=== PATIENT | male | born 1935 | race Caucasian/White ===

== ENCOUNTER → 2017-01-24 | Outpatient (CLI) | payer MEDICARE ==
[~2017-01-24] MED LIST: AMLO10TA2 PO; ASPI1TAB57 PO; ASPI81 PO; ATEN25TA PO; CETI10 PO; COEN1CAP PO; COQ-100C5 OR; FENO48TA PO; FORSKOLIN; GLIP10TA6 PO; HYDR-3533 PO; LEVO.05 PO; LEVO50TA4 PO; LORT5TAB PO; LOSA100T PO; METF1000 PO; NIAC500T5 PO; OMEG5CAP PO; OMEP20TA OR; ORPH100T2 PO; OXYB5TAB PO; PANT40TA3 PO; PLAV75TA29 PO; POTA-163 PO; PRED10PA PO; RASP100C PO; ROSU1TAB10 PO; ROSU1TAB4 PO; TAB-TAB PO; VITA100018 OR; VITA100021 SL; VITA100064 PO; VITA10007 PO; WAL-10TA2 PO
[2017-01-24 12:00] LABS: HEMATOCRIT 39.5 % (39.0-51.0); MEAN CELL VOLUME 89.5 FL (80.0-100.0); MEAN CORPUSCULAR HEMOGLOBIN 30.6 PG (27.0-34.0); MEAN CORPUSCULAR HGB CONC 34.2 % (32.0-36.0); PLATELET COUNT 255 TH/MM3 (150-450); RED BLOOD COUNT 4.42 MIL/MM3 (4.50-5.90); RED CELL DISTRIBUTION WIDTH 12.3 % (11.6-17.2); REVIEW FLAG FINAL
[2017-01-24 12:22] LABS: ANION GAP 7 MEQ/L (5-15); AST (GOT) 32 U/L (15-37); BICARBONATE 27.1 MEQ/L (21.0-32.0); BLOOD UREA NITROGEN 15 MG/DL (7-18); CHLORIDE 103 MEQ/L (98-107); GLOMERULAR FILTRATION RATE 57 ML/MIN (>89); GLUCOSE,FASTING 104 MG/DL (74-99); POTASSIUM 4.5 MEQ/L (3.5-5.1); SODIUM (NA) 137 MEQ/L (136-145)
[2017-01-24 12:49] LABS: ALKALINE PHOSPHATASE 80 U/L (45-117); ALT (GPT) 43 U/L (12-78); TOTAL BILIRUBIN ADULT 0.3 MG/DL (0.2-1.0)
== END ==
LOC: CLAB 10:57
DX: R76.8 Other specified abnormal immunological findings in serum (principal); R79.89 Other specified abnormal findings of blood chemistry; L25.9 Unspecified contact dermatitis, unspecified cause; R80.9 Proteinuria, unspecified; R53.83 Other fatigue; R06.02 Shortness of breath
CPT/HCPCS: 36415; 80053; 82607; 82746; 83880; 84403; 84443; 85027

== ENCOUNTER → 2017-05-05 | Outpatient (CLI) | payer MEDICARE ==
[2017-05-05 08:44] LABS: BICARBONATE 27.5 MEQ/L (21.0-32.0); CALCIUM 9.5 MG/DL (8.5-10.1); CREATININE 1.49 MG/DL (0.60-1.30)
== END ==
LOC: CLAB 07:07
PROVIDERS: ATTEND Internal Medicine Cardiovascular Disease
DX: I50.9 Heart failure, unspecified (principal)
CPT/HCPCS: 36415; 80048

== ENCOUNTER → 2017-05-29 | Outpatient (CLI) | payer MEDICARE ==
[~2017-05-29] MED LIST changes: +ASCO100029; +BLACK CHERRY CONCENT PO; +CALC500T55; +CHRO400T; +CODCAP4 PO; +CROM5.2S4 EACH NARE; +FURO20TA PO; +HYDR-3801 PO; +HYDR200T3 PO; +KETO0.02 EACH EYE; +LEVEMIR SQ; +LORA-650 PO; +LUTE1TAB PO; +LYSI1000; +MAPA500T13 PO; +METO50TA PO; +MULT-65 PO; +TEMA15CA PO; +TURM500C7 PO; +tumeric PO
== END ==
LOC: CLAB 08:22
PROVIDERS: ATTEND Family Medicine
DX: M25.50 Pain in unspecified joint (principal)
CPT/HCPCS: 36415; 86617

== ENCOUNTER 2017-06-03 10:13 | Day surgery (SDC) | payer MEDICARE ==
[~2017-06-03] VITALS: Ht 177.8 cm; Wt 97.4 kg
[~2017-06-03 10:13] MED LIST changes: -ASCO100029; -BLACK CHERRY CONCENT PO; -CALC500T55; -CHRO400T; -CODCAP4 PO; -CROM5.2S4 EACH NARE; -FURO20TA PO; -HYDR-3801 PO; -HYDR200T3 PO; -KETO0.02 EACH EYE; -LEVEMIR SQ; -LORA-650 PO; -LUTE1TAB PO; -LYSI1000; -MAPA500T13 PO; -METO50TA PO; -MULT-65 PO; -TEMA15CA PO; -TURM500C7 PO; -tumeric PO
[2017-06-03] MEDS ORDERED: IOHEXOL 350 MG/ML 50 ML BTL (for Cath Lab) OTHER ONE (10:14)
[2017-06-03 10:51] VITALS: BP 162/72; PULSE 61; RESP 18; TEMP 98.1; O2SAT 93
[2017-06-03] MEDS ORDERED: NS 1000P @30 MLS/HR (KVO) IV SCH (11:00)
[2017-06-03 11:01] LABS: AUTOMATED NEUTROPHIL # 3.5 TH/MM3 (1.8-7.7); BASOPHIL # 0.1 TH/MM3 (0-0.2); BASOPHIL % 0.7 % (0.0-2.0); EOSINOPHIL # 0.3 TH/MM3 (0-0.4); EOSINOPHIL % 4.5 % (0.0-4.0); HEMATOCRIT 41.8 % (39.0-51.0); HEMOGLOBIN 14.1 GM/DL (13.0-17.0); LYMPH % 35.3 % (9.0-44.0); LYMPHOCYTE # 2.5 TH/MM3 (1.0-4.8); MEAN CELL VOLUME 87.4 FL (80.0-100.0); MEAN CORPUSCULAR HEMOGLOBIN 29.4 PG (27.0-34.0); MEAN CORPUSCULAR HGB CONC 33.7 % (32.0-36.0); MEAN PLATELET VOLUME 9.7 FL (7.0-11.0); MONO % 9.5 % (0.0-8.0); MONOCYTE # 0.7 TH/MM3 (0-0.9); PLATELET COUNT 186 TH/MM3 (150-450); RED BLOOD COUNT 4.78 MIL/MM3 (4.50-5.90); RED CELL DISTRIBUTION WIDTH 12.7 % (11.6-17.2)
[2017-06-03 11:12] LABS: PROTHROMBIN TIME - PATIENT 10.6 SEC (9.8-11.6)
[2017-06-03] MEDS ORDERED: TEMA15CA PO (11:13)
[2017-06-03] MEDS ORDERED: HYDR-3801 PO (11:13)
[2017-06-03] MEDS ORDERED: MAPA500T13 PO (11:13)
[2017-06-03] MEDS ORDERED: CHRO400T (11:13)
[2017-06-03] MEDS ORDERED: KETO0.02 EACH EYE (11:13)
[2017-06-03] MEDS ORDERED: LEVEMIR SQ (11:13)
[2017-06-03] MEDS ORDERED: CROM5.2S4 EACH NARE (11:13)
[2017-06-03] MEDS ORDERED: LYSI1000 (11:13)
[2017-06-03] MEDS ORDERED: tumeric PO (11:13)
[2017-06-03] MEDS ORDERED: LUTE1TAB PO (11:13)
[2017-06-03] MEDS ORDERED: CODCAP4 PO (11:13)
[2017-06-03] MEDS ORDERED: ASCO100029 (11:13)
[2017-06-03] MEDS ORDERED: FURO20TA PO (11:13)
[2017-06-03] MEDS ORDERED: BLACK CHERRY CONCENT PO (11:13)
[2017-06-03] MEDS ORDERED: METO50TA PO (11:13)
[2017-06-03] MEDS ORDERED: LORA-650 PO (11:13)
[2017-06-03] MEDS ORDERED: MULT-65 PO (11:13)
[2017-06-03] MEDS ORDERED: CALC500T55 (11:13)
[2017-06-03] MEDS ORDERED: HYDR200T3 PO (11:13)
[2017-06-03 11:19] LABS: BICARBONATE 27.1 MEQ/L (21.0-32.0); CALCIUM 9.2 MG/DL (8.5-10.1); CREATININE 1.49 MG/DL (0.60-1.30)
[2017-06-03] MEDS ORDERED: HEPARIN-NS/PF FLUSH BAG 2,000 ML IV FLUSH ONE (12:46)
[2017-06-03] MEDS ORDERED: MIDAZOLAM HCL 2 MG/2 ML VIAL ONE (12:46)
--- NOTE | 2017-06-03 14:02 | CATHPROC ---
[place] HIS Report Study Information Study Number Admission Scheduled Start Study Start [id number] Jun 03 2017 10:13AM 06/03/2017 Jun 03 2017 12:50PM [place] Service Cardiac Catheterization Admit Source Facility Department Other [facility] Physician and Clinical Staff Initial Edvin Saleh Winchman/Crane Operator Marleny De Leon,RANDOLPH Winchman/Crane Operator Álvaro Oro RN Recorder Blossom Stokes,RT(R) Itzel Brambila,RT(R) (BS) Procedures Performed Procedure Location (Site) Vessel Name Coronary Angiograms LCA Left Coronary Coronary Angiograms RCA Right Coronary L Heart Cath LV Gram-hand inj. LV LV Ventricle Equipment Time General Intern Description Size Mfg Part Number Used/Scraped TRANSDUCER, TRRelaywareAVE [id number] 12:55 [employer] * Used W/STOCKCOCK *[id number] INTRODUCER SET, 12:55 [employer] FR 5 [id number] *[id number] Used MICROPUNCTURE STIFF 538-476 *[id number] 538-420 *[id number] 538-453S *[id number] 12:55 [employer] PACK, CCL CUSTOM * Used *[id number] 12:55 [employer] PACER PEN, SKIN DUAL W/ RULER * Used *[id number] 12:55 [employer] WIRE, 3MMJ .035 180CM 180CM Used *[id number] PROBE COVER, STERILE [id number] 12:55 [employer] MEDICAL * Used ULTRASOUND W/ GEL *[id number] 12:55 NAMIC MANIFOLD, 4 PORT * Used *[id number] 12:55 [employer] OMNIPAQUE, 350 MG, 150ML 150ML [id number] Used [id number] 12:55 arGEN-X MEDICAL BLANKET,WARM AIR CCL * Used *[id number] 12:55 [employer] MEDICAL SHEATH, FR4 TERUMO (10CM) FR 4 Used *[id number] History: Current Medications Medication Dosage/Unit Route Frequency Last Date/Time Taken ASA PLAVIX Glucophage LOPRESSOR NORVASC COZAAR History: Allergies Allergy Reaction lovastatin MUSCLE RAMPS hydromorphone hallucinations History: Risk Factors Family History of Hypertension Dyslipidemia Previous OR Previous Heart Failure Premature CAD Yes Yes No Yes Yes Prior Valve Prior PCI Prior PCIDate Prior CABG Surgery No Yes 02/17/2011 No Cerebrovascular Peripheral Artery Chronic Lung On Dialysis Diabetes Diabetes Therapy Disease Disease Disease No No No No Yes Oral History: Stress Tests Stress or Imaging Studies Performed Yes Standard Exercise Stress Test No Stress Echo No Stress Test SPECT Stress Test SPECT Result Stress Test SPECT Ischemia Risk/Extent Yes Positive Intermediate Stress Test CMR No Cardiac CTA Coronary Calcium Score No No History: Other Disease Selection Items Gerd HTN History: Other Current Smoker Method Quit Packs a Day Years Used Pack Years No Cigarettes 30 Years Ago 1 30 30 Labs Hgb (g/dl) Hct (%) WBC (l/cumm) Platelets (thousands) 11.60-17.00 35.00-51.00 4.00-11.00 150.00-450.00 14.1 41.8 7 186 Glucose (mg/dl) BUN (mg/dl) Creatinine (mg/dl) BUN:Creatinine (1:x) 74.00-106.00 7.00-18.00 0.50-1.30 10.00-20.00 161 23 1.5 15.3 Na (meq/l) K (meq/l) 136.00-145.00 3.50-5.10 140 3.9 INR (PTT:PT) 0.90-1.10 1 CPK-MB (ng/ML) 0.50-3.60 Not Drawn Medication Medication Total Dose (Bolus/Oral) Medication Total Dosage/Unit 1% XYLOCAINE 20 mL FENTANYL 50 mcg OXYGEN 2 l/min VERSED 2 mg Medications (Bolus/Oral) Medication Time Given Dosage/Unit Administered By Reason VERSED 06/03/2017 1:13:21 PM 2 mg Shorty, Álvaro 2 mg VERSED given in lab by Álvaro Oro RN in Left Antecubital via Peripheral IV. Ordered by Edvin Burgess. FENTANYL 06/03/2017 1:14:28 PM 50 mcg Shorty, Álvaro 50 mcg FENTANYL given in lab by Álvaro Oro RN in Left Antecubital via Peripheral IV. Ordered by Edvin Alanis. 1% XYLOCAINE 06/03/2017 1:20:30 PM 20 mL Edvin Cardenas 20 mL 1% XYLOCAINE given in lab by Edvin Cardenas in Right Groin via Subcutaneous. OXYGEN 06/03/2017 1:20:45 PM 2 l/min Shorty, Álvaro 2 l/min OXYGEN given in lab by Álvaro Oro RN via Nasal. Ordered by Edvin Cardenas. Medication (Drip) Medication Time Given Dosage/Unit Concentration/Unit Diluent (ml) Solution IV Solutions 06/03/2017 12:51:41 PM 50 mL (IV) NaCl .9 IV Solutions given in lab by Marleny De Leon RN in Left Antecubital via Peripheral IV. Pump/Drip Ross w using NaCl .9. Initial Case Assessment Cardiovascular HR Rhythm NIBP Chest Pain 68 SR 138/88 0 Edema Present Skin color Skin None Normal Warm Dry Circulatory - Right Pulses Dorsalis Pedis Femoral 2 2 Scale (0,1,2,3,4,d) Circulatory - Left Pulses Dorsalis Pedis Femoral 2 2 Scale (0,1,2,3,4,d) Neurological State Oriented to time-place- Alert Moves all extremities person Respiration - General Respiration Rate SpO2 (%) (B/min) 16 98 Chronological Log Time Study Chronological Log 12:45:28 Patient arrived via Bed. 12:51:29 Patient Name, D.O.B, / Armband Verified By R.N. 12:51:29 Consent signed by the physician and the patient and verified by the [facility] staff. 12:51:30 Pre-op and post- op instructions given; patient acknowledges understanding of instructions. 12:51:32 Verbal Stimulation=2 Physical Stimulation=2 Airway=2 Respiration=2 TOTAL=8. (0=absent, 1=li mited, 2=present) 12:51:34 Presedation assessment performed by [facility] RN. 12:51:36 Patient has been NPO for More than 6Hrs. 12:51:36 Skin Breakdown- none per pt 12:51:37 Patient Warmer Placed on the Table. 12:51:37 Sonja Prominences Protected 12:51:40 A # 20 IV was noted in the Antecubital (left). Grade = 0 12:51:41 IV Solutions given in lab by Marleny De Leon RN in Left Antecubital via Peripheral IV. Pum p/Drip Flow using NaCl .9. 12:51:41 History and physical on the chart or being dictated. Assessment: Initial Case, HR=68 BPM, Rhythm=SR, AUQX=375/88 mmhg, Chest Pain=0, Edema=None, Col or=Normal, Skin = Warm, Dry Right Pulses: Delio Ped=2, Femoral=2 12:51:42 Left Pulses: Delio Ped=2, Femoral=2 Neurological: State=Alert, Ox3, MANZANO Respiration: Resp=16 B/min, SpO2=98 % Vitals capture started with the following parameters, Patient=Adult, Interval=5 min, Initial Pr szbhbu=510 mmHg, 12:55:00 Deflation Rate=5 mmHg, Cuff placed on Unknown 12:55:03 Reference ECG taken 12:55:09 Bilateral groins prepped with 2% chlorhexidine, and draped after a 3 minute waiting time. 12:55:44 HR=68 bpm, MPAA=566/88 mmhg, SpO2=97.0 %, Resp=16 B/min 12:57:36 MD paged 12:59:25 Pressure channel 1 zeroed. 13:00:39 HR=71 bpm, KIHH=310/69 mmhg, SpO2=96.0 %, Resp=13 B/min 13:05:36 HR=64 bpm, OEDJ=992/86 mmhg, SpO2=96.0 %, Resp=12 B/min 13:10:39 HR=59 bpm, EYUN=361/77 mmhg, SpO2=96.0 %, Resp=11 B/min 13:13:19 MD arrived. 13:13:21 2 mg VERSED given in lab by Álvaro rOo RN in Left Antecubital via Peripheral IV. Ordered by Edvin Cardenas. 13:14:28 50 mcg FENTANYL given in lab by Álvaro Oro RN in Left Antecubital via Peripheral IV. Ord ered by Edvin Cardenas. 13:16:50 HR=75 bpm, RLOT=933/76 mmhg, SpO2=98.0 %, Resp=8 B/min Time Out. Correct patient, correct procedure, correct physician, power injector loaded, or not loaded with contrast with 13:18:52 surgical team present. Time Out Concurred by MD and individual staff in procedure. 13:19:30 Case Start 13:20:30 20 mL 1% XYLOCAINE given in lab by Edvin Cardenas in Right Groin via Subcutaneous. 13:20:35 HR=63 bpm, XRQB=840/67 mmhg, SpO2=94.0 %, Resp=22 B/min 13:20:45 2 l/min OXYGEN given in lab by Álvaro Oro RN via Nasal. Ordered by Edvin Cardenas. 13:21:24 Access site was Right Femoral Artery with micropuncture via ultrasound. 13:22:29 A SHEATH, FR4 TERUMO (10CM) FR 4 was advanced into the Fem Art (right) using the Percutaneo us technique. A JL 4.0 INFINITI CATHETER FR 4 was advanced over a wire. OMNIPAQUE, 350 MG, 150ML 150ML was us ed for 13:23:15 injections. Recorded Pressure: Ao, HR=63, Condition=Condition 1 13:24:52 (Aorta) Ao 131/58/91 13:25:36 The LCA was injected and visualized at various angles. OMNIPAQUE, 350 MG, 150ML 150ML used . 13:25:40 HR=61 bpm, JWFO=414/65 mmhg, SpO2=96.0 %, Resp=13 B/min 13:29:28 Catheter was removed A 3DRC INFINITI CATHETER FR 4 was advanced over a wire. OMNIPAQUE, 350 MG, 150ML 150ML was used for 13:30:10 injections. 13:30:41 HR=60 bpm, WNWZ=789/72 mmhg, SpO2=97.0 %, Resp=11 B/min 13:31:27 The RCA was injected and visualized at various angles. OMNIPAQUE, 350 MG, 150ML 150ML used . 13:31:50 Catheter was removed A PIGTAIL ANG. INFINITI CATHETER FR 4 was advanced over a wire. OMNIPAQUE, 350 MG, 150ML 150ML was used 13:33:03 for injections. Recorded Pressure: LV, HR=94, Condition=Condition 1 13:34:13 (Left Ventricle) LV 146/19/21 13:34:20 The LV was manually injected with 8 cc's and visualized. OMNIPAQUE, 350 MG, 150ML 150ML use d. Recorded Pressure: LV, Ao, HR=75, Condition=Condition 1 13:34:42 (Left Ventricle) LV 146/13/18, (Aorta) Ao 140/78/105 13:35:25 Catheter was removed 13:36:13 HR=58 bpm, CNYC=548/73 mmhg, SpO2=99.0 %, Resp=11 B/min 13:38:00 Case End 13:38:49 No case complications noted. 13:38:58 Cine recording checked. 13:39:10 Holding Area notified. 13:39:21 A Left Heart Cath was performed. 13:40:44 HR=57 bpm, BVHF=398/117 mmhg, SpO2=99.0 %, Resp=9 B/min 13:43:00 Sheath removed; pressure applied to access site. 13:45:43 HR=65 bpm, GIEU=787/75 mmhg, SpO2=97.0 %, Resp=7 B/min 13:50:48 HR=55 bpm, OFJV=731/83 mmhg, SpO2=97.0 %, Resp=13 B/min 13:55:45 HR=63 bpm, CQIA=137/103 mmhg, SpO2=98.0 %, Resp=10 B/min 13:56:53 Sterile dressing applied to site End Study - Contrast Media Used In Study Contrast Total Opened (mL) Total Used (mL) Total Wasted (mL) Omnipaque 40 40 0 End Study - Maximum Contrast Load Max Contrast Load (mL) 326.4 End Study - Radiation Exposure Fluoro Time (minutes) 2.3 End Study - Sheaths Sheaths Pulled By Sheath Hold Time (min) Itzel Stover 20 End Study - Patient Disposition Complications Transferred To Interventional Outcome No Outpatient Bed No attempt made
--- NOTE | 2017-06-03 14:33 | MA ---
cc: Edvin Cardenas MD,Sergio Simental MD DATE: 06/03/2017 INDICATION FOR CARDIAC CATHETERIZATION: Abnormal nuclear stress test. PROCEDURE: 1. Sedation. 2. Left ventriculography. 3. Bilateral coronaries. CONSENT: Fully informed consent was obtained prior to the procedure. The risks of , bleeding, myocardial infarction, perforation, aspiration, stent placement, PTCA, bypass surgery, renal failure, foreseen and unforeseen complications were reviewed. The patient appeared to fully understand the risks. PROCEDURAL STATEMENTS: The patient was draped and prepped. The right common femoral artery was entered using a micropuncture technique with ultrasound using Lidocaine anesthesia. The patient was given sedation with Versed and Fentanyl. Via the 4-Georgian sheath, left and right coronary catheters were used to intubate the right and left coronaries, pigtail catheter to intubate the left ventricle. Multiple angiographic views were taken. Care was taken not to use excessive contrast given the patient's elevated creatinine. A hand-held LV-gram was performed using 9 cc of contrast. FINDINGS: I. HEMODYNAMICS: Aortic pressure was 140/78 with a mean of 105. Left ventricular pressure was 146 with a left ventricular end-diastolic pressure of 18. There was no evidence of significant gradient on pullback across the LV outflow tract and aortic valve. II. LEFT VENTRICULOGRAM: The overall left ventricular ejection fraction was mildly reduced at about 45% with evidence of mild anterior wall hypokinesis. III. CORONARY ARTERIES: There was heavy calcification of LAD and moderate of the circumflex. There was evidence of mild diffuse disease of the LAD at 25-30%. There was evidence of a medium-sized diagonal that had a 99% subtotal occlusion at its ostium. There was also evidence of a further diagonal branch that was totally occluded and filled via collaterals. There is a medium intermediate ramus that had some mild diffuse 25% disease. There is a large septal weed eradicator that came off the LAD. In the mid-LAD in the region of the large diagonal branch, there was evidence of diffuse 25-30% disease. The circumflex vessel was also diffusely diseased. The OM1 was distal with the ramus taking over the function of the usual OM. It is a medium-sized vessel. The OM2 is also a medium-sized vessel and the OM3/posterior descending artery also is a medium-sized vessel. There was evidence of 50% disease of the posterior descending artery or OM3 coming off the left system. The left system was dominant. The right coronary artery was a nondominant vessel. There was evidence of a medium-sized RV branch. There was evidence of a previously placed stent in the proximal RCA that was present. PLAN: We will continue medical management for disease of the diagonal branches If absolutely necessary, one could consider bypass surgery to the diagonal branches, although this does appear to be a subtotally occluded lesion. MD ALISSA Henriquez/CECILIA , 01:51 PM , 02:32 PM MTDMilind
[2017-06-04] MEDS ORDERED: TURM500C7 PO (10:27)
--- NOTE | 2017-06-04 23:17 | EKG ---
Date Performed: 06/03/2017 Time Performed: 11:01:16 PTAGE: 82 years EKG: Sinus rhythm with frequent PVCs. 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
== END 2017-06-03 17:42 | disposition home or self-care (01) ==
LOC: HDOC 10:13 → HDIC 10:14 → HDOC 17:42
PROVIDERS: ATTEND Internal Medicine Cardiovascular Disease
DX: I25.10 Atherosclerotic heart disease of native coronary artery without angina pectoris (principal); I25.2 Old myocardial infarction; R60.9 Edema, unspecified; I10 Essential (primary) hypertension; E11.9 Type 2 diabetes mellitus without complications; E03.9 Hypothyroidism, unspecified; K21.9 Gastro-esophageal reflux disease without esophagitis; E78.1 Pure hyperglyceridemia; R42 Dizziness and giddiness; I50.9 Heart failure, unspecified; G47.30 Sleep apnea, unspecified; K86.1 Other chronic pancreatitis; Z95.5 Presence of coronary angioplasty implant and graft
CPT/HCPCS: 80048; 85025; 85610; 85730; 93005; 93458; 99152; C1760; C1769; C1893; G0269; J1644; J2250; J3010; Q9967